=== PATIENT | female | born 1975 | race Caucasian/White ===

== ENCOUNTER 2018-06-26 16:04 | Inpatient (IN) | payer SELFPAY ==
[~2018-06-26] VITALS: Ht 160 cm; Wt 64.9 kg
[2018-06-26 16:09] VITALS: Ht 160 cm; Wt 64.9 kg
[2018-06-26 17:40] LABS: AMPHETAMINE QUAL UR POSITIVE (See below)
[2018-06-26 21:38] LABS: PLATELET COUNT 254 x10^3mcL (130-400)
[2018-06-26 21:58] LABS: ALKALINE PHOSPHATASE 77 U/L (46-116); ALT/SGPT 26 U/L (14-59); AST/SGOT 59 U/L (15-37); BILIRUBIN TOTAL 0.94 mg/dL (0.20-1.00); CALCIUM 7.8 mg/dL (8.5-10.1); CARBON DIOXIDE 22.6 mmol/L (21-32); CREATININE SERUM 0.8 mg/dL (0.6-1.0); GFR1 > 60 mL/min; GLUCOSE SERUM 87 mg/dL (74-106); TOTAL PROTEIN, SERUM 6.4 g/dL (6.4-8.2)
[2018-06-26 22:01] LABS: ATYPICAL LYMPH 2 %; BAND NEUTROPHIL 3 % (0-10); BASOPHIL 0 % (0-2); MONOCYTE 3 % (0-7); SEGMENTED NEUTROPHILS 80 % (37-75)
[2018-06-26 22:03] LABS: PLATELET MORPHOLOGY PLATELETS NORMAL; rbc morphology (normal/abnorm) NORMAL (NORMAL)
[2018-06-26 22:07] LABS: CHLORIDE SERUM 98 mmol/L (98-107); POTASSIUM SERUM 3.5 mmol/L (3.5-5.1); SODIUM SERUM 133 mmol/L (136-145)
[2018-06-26 22:12] LABS: ALBUMIN 2.9 g/dL (3.4-5.0)
[2018-06-27 02:23] LABS: CHOLESTEROL/HDL RATIO 2.4; MAGNESIUM 1.3 mg/dL (1.8-2.4)
[2018-06-27 02:41] VITALS: BP 140/97
[2018-06-27 05:15] VITALS: BP 146/97
[2018-06-27 06:58] LABS: CALCIUM 8.5 mg/dL (8.5-10.1); CHLORIDE SERUM 97 mmol/L (98-107); CREATININE SERUM 0.7 mg/dL (0.6-1.0); GFR1 > 60 mL/min; GLUCOSE SERUM 97 mg/dL (74-106); MAGNESIUM 1.9 mg/dL (1.8-2.4); PHOSPHOROUS 2.1 mg/dL (2.5-4.9); POTASSIUM SERUM 3.8 mmol/L (3.5-5.1); SODIUM SERUM 131 mmol/L (136-145)
[2018-06-27 07:00] LABS: BASOPHIL % 0.4 % (0-2); PLATELET COUNT 208 x10^3mcL (130-400)
[2018-06-27 07:03] LABS: RED CELL DISTRIBUTION WIDTH 14.9 % (11.5-14.5)
[2018-06-27 07:57] LABS: microscopic required? YES; urine erythrocyte 3+ (NEGATIVE)
[2018-06-27 09:10] VITALS: BP 141/83
[2018-06-27 11:45] VITALS: BP 141/83
[2018-06-27 12:06] VITALS: BP 142/87
== END 2018-06-27 12:16 | disposition home or self-care (01) | DRG 918 ==
LOC: ED 16:04 → DU 06-27 00:53 → MU 06-27 03:32 → DU 06-27 03:33
PROVIDERS: Emergency Medicine; ADMIT Internal Medicine
DX: T43.621A Poisoning by amphetamines, accidental (unintentional), initial encounter (principal); E87.1 Hypo-osmolality and hyponatremia; E44.0 Moderate protein-calorie malnutrition; G47.00 Insomnia, unspecified; F15.10 Other stimulant abuse, uncomplicated; D72.828 Other elevated white blood cell count; E83.42 Hypomagnesemia; F43.9 Reaction to severe stress, unspecified; E78.5 Hyperlipidemia, unspecified; R00.0 Tachycardia, unspecified; Z98.891 History of uterine scar from previous surgery; Z88.6 Allergy status to analgesic agent; Z88.1 Allergy status to other antibiotic agents; Z80.9 Family history of malignant neoplasm, unspecified; Z68.25 Body mass index [BMI] 25.0-25.9, adult; Y92.89 Other specified places as the place of occurrence of the external cause
CPT/HCPCS: 83880; J2060; J3475; J3490; J7030